=== PATIENT | male | born 1955 | race Hispanic/Latino ===

== ENCOUNTER 2023-04-12 20:38 | Emergency (ER) | payer OTHER ==
[~2023-04-12] VITALS: Ht 170.2 cm; Wt 68.0 kg
[2023-04-12 20:57] VITALS: BP 147/93; PULSE 100; RESP 20
[2023-04-12] MEDS ORDERED: HYDR25CA PO (22:55)
[2023-04-12] MEDS ORDERED: HYDROXYZINE 25 MG TABLET PO ONE (23:00)
== END 2023-04-12 23:00 | disposition home or self-care (01) ==
LOC: EDH 20:38
DX: F41.9 Anxiety disorder, unspecified (principal); E78.00 Pure hypercholesterolemia, unspecified; I10 Essential (primary) hypertension; Z72.820 Sleep deprivation